=== PATIENT | male | born 1985 | race Caucasian/White ===

== ENCOUNTER → 2016-08-25 | Outpatient (CLI) | payer OTHER ==
[~2016-08-25] MED LIST: ABAC1TAB3 PO; CYCL-36 PO; LORTA5 PO
== END ==
LOC: CLAB 15:09
PROVIDERS: ATTEND Specialist
DX: B20 Human immunodeficiency virus [HIV] disease (principal); B18.2 Chronic viral hepatitis C; E55.9 Vitamin D deficiency, unspecified; Z79.899 Other long term (current) drug therapy; Z20.2 Contact with and (suspected) exposure to infections with a predominantly sexual mode of transmission
CPT/HCPCS: 36415; 82140

== ENCOUNTER 2017-05-05 10:49 | Emergency (ER) | payer OTHER ==
[~2017-05-05] VITALS: Ht 167.6 cm; Wt 63.0 kg
[2017-05-05 10:53] VITALS: BP 119/79; PULSE 108; RESP 20; TEMP 100.5; O2SAT 98
--- NOTE | 2017-05-05 13:55 | PD ---
HPI Chief Complaint: GI Complaint Time Seen by Provider: 13:54 Travel History International Travel<30 days: No Contact w/Intl Traveler<30days: No Traveled to known affect area: No History of Present Illness HPI 32-year-old male came to the emergency room with history of fever, body aches, cough and not feeling well for past 2-3 days. Patient is HIV positive but taking his antiretroviral medications. He says that he missed his last appointment with his doctor. But as of 5 months ago his viral load was undetectable. Patient had a temperature of 100.5. He says that he took some Motrin at 9 AM today. Rest of the vital signs are relatively stable. No known sick contacts. He did not get his flu shot this winter season. He has been having vomiting and diarrhea as well. Patient says that 3-4 years ago when he had these symptoms was diagnosed with a bad pneumonia and needed a chest tube. He just wanted to make sure he didn't have the same condition this time again. [facility] Past Medical History Narrative Medical List of his past medical, surgical, social and family history is reviewed from the nursing note. ADHD: Yes Anemia: Yes Blood Disorders: Yes (HIV POSITIVE- RECENTLY DIAGNOSED) Anxiety: Yes Depression: Yes (BIPOLAR) Diminished Hearing: No Respiratory: Yes (TUBERCULOSIS: 2011, CHEST TUBE INSERTED) Pneumonia: Yes Ulcer: Yes (?) Past Surgical History Appendectomy: Yes Social History Alcohol Use: Yes (OCC) Tobacco Use: No Substance Use: Yes (USES COCAINE AND MOLLYS) Allergies-Medications (Allergen,Severity, Reaction): Coded Allergies: No Known Allergies (Unverified Allergy, Unknown, 05/05/17) Comments No known drug allergies. Reported Meds & Prescriptions Reported Meds & Active Scripts Active Tamiflu (Oseltamivir Phosphate) 75 Mg Cap 75 Mg PO BID 5 Days Zofran Odt (Ondansetron Odt) 4 Mg Tab 4 Mg SL Q6HR PRN Reported Triumeq (Pfkhhbsx-Seafkchhjlpz-Jxofqzxrbd) 600-50-300 Mg Tab 1 Tab PO DAILY Hazardous agent; use appropriate precautions for handling & disposal. Narrative Medication List of his home medications reviewed from the nursing note. Review of Systems Except as stated in HPI: all other systems reviewed are Neg General / Constitutional: Positive: Fever, Chills Respiratory: Positive: Cough Gastrointestinal: Positive: Nausea, Vomiting, Diarrhea Musculoskeletal: Positive: Myalgias Physical Exam Narrative GENERAL: Awake, alert, moderate distress SKIN: Focused skin assessment warm/dry. HEAD: Atraumatic. Normocephalic. EYES: Pupils equal and round. No scleral icterus. No injection or drainage. ENT: No nasal bleeding or discharge. Mucous membranes pink and moist. NECK: Trachea midline. No JVD. CARDIOVASCULAR: Regular rate and rhythm. No murmur appreciated. RESPIRATORY: No accessory muscle use. Clear to auscultation. Breath sounds equal bilaterally. GASTROINTESTINAL: Abdomen soft, non-tender, nondistended. Hepatic and splenic margins not palpable. MUSCULOSKELETAL: No obvious deformities. No clubbing. No cyanosis. No edema. NEUROLOGICAL: Awake and alert. No obvious cranial nerve deficits. Motor grossly within normal limits. Normal speech. PSYCHIATRIC: Appropriate mood and affect; insight and judgment normal. Data Data Last Documented VS Vital Signs Date Time Temp Pulse Resp B/P (MAP) Pulse Ox O2 Delivery O2 Flow Rate FiO2 05/05/17 16:24 100 16 126/69 (88) 100 05/05/17 14:44 101.1 Room Air Orders Orders Sepsis Workup Initiated (05/05/17 ) Complete Blood Count With Diff (05/05/17 13:57) Comprehensive Metabolic Panel (05/05/17 13:57) Lactic Acid Sepsis Protocol (05/05/17 13:57) Urinalysis - C+S If Indicated (05/05/17 13:57) Influenzae A/B Antigen (05/05/17 13:57) Blood Culture (05/05/17 13:57) Chest, Single Ap (05/05/17 13:57) Blood Glucose (05/05/17 13:57) Ecg Monitoring (05/05/17 13:57) Iv Access Insert/Monitor (05/05/17 13:57) Oximetry (05/05/17 13:57) Oxygen Administration (05/05/17 13:57) Sodium Chlor 0.9% 1000 Ml Inj (Ns 1000 M (05/05/17 13:57) Sodium Chlor 0.9% 1000 Ml Inj (Ns 1000 M (05/05/17 13:57) Sodium Chlor 0.9% 1000 Ml Inj (Ns 1000 M (05/05/17 13:57) Oseltamivir (Tamiflu) (05/05/17 15:15) Ed Discharge Order (05/05/17 15:20) Ibuprofen (Motrin) (05/05/17 15:30) Labs Laboratory Tests Test 05/05/17 14:15 White Blood Count 5.9 TH/MM3 Red Blood Count 4.68 MIL/MM3 Hemoglobin 15.2 GM/DL Hematocrit 42.0 % Mean Corpuscular Volume 89.7 FL Mean Corpuscular Hemoglobin 32.4 PG Mean Corpuscular Hemoglobin Concent 36.1 % Red Cell Distribution Width 13.6 % Platelet Count 218 TH/MM3 Mean Platelet Volume 9.0 FL Neutrophils (%) (Auto) 57.0 % Lymphocytes (%) (Auto) 25.7 % Monocytes (%) (Auto) 16.9 % Eosinophils (%) (Auto) 0.0 % Basophils (%) (Auto) 0.4 % Neutrophils # (Auto) 3.4 TH/MM3 Lymphocytes # (Auto) 1.5 TH/MM3 Monocytes # (Auto) 1.0 TH/MM3 Eosinophils # (Auto) 0.0 TH/MM3 Basophils # (Auto) 0.0 TH/MM3 CBC Comment AUTO DIFF Differential Comment AUTO DIFF CONFIRMED Urine Color YELLOW Urine Turbidity CLEAR Urine pH 6.5 Urine Specific [place] 1.009 Urine Protein NEG mg/dL Urine Glucose (UA) NEG mg/dL Urine Ketones NEG mg/dL Urine Occult Blood NEG Urine Nitrite NEG Urine Bilirubin NEG Urine Urobilinogen LESS THAN 2.0 MG/DL Urine Leukocyte Esterase NEG Urine RBC 1 /hpf Urine WBC LESS THAN 1 /hpf Urine Squamous Epithelial Cells <1 /hpf Microscopic Urinalysis Comment CATH-CULT NOT IND Blood Urea Nitrogen 8 MG/DL Creatinine 1.03 MG/DL Random Glucose 81 MG/DL Total Protein 7.9 GM/DL Albumin 3.9 GM/DL Calcium Level 8.9 MG/DL Alkaline Phosphatase 85 U/L Aspartate Amino Transf (AST/SGOT) 127 U/L Alanine Aminotransferase (ALT/SGPT) 261 U/L Total Bilirubin 0.5 MG/DL Sodium Level 137 MEQ/L Potassium Level 3.7 MEQ/L Chloride Level 101 MEQ/L Carbon Dioxide Level 28.9 MEQ/L Anion Gap 7 MEQ/L Estimat Glomerular Filtration Rate 83 ML/MIN Lactic Acid Level 1.3 mmol/L [facility] Medical Decision Making Medical Screen Exam Complete: Yes Emergency Medical Condition: Yes Medical Record Reviewed: Yes Differential Diagnosis Pneumonia, influenza, viral illness, sepsis Narrative Course 3:17 PM given the fact patient is HIV positive I decided do a full sepsis workup on this patient. He is positive for influenza A. Chemistry lactic acid are within acceptable limits. CBC is pending. Chest x-rays negative. Patient was given IV fluid bolus as per the sepsis protocol. If the CBC is within acceptable limits I will discharge him home. Procedures EKG Prior to Arrival: No Diagnosis Primary Impression: Influenza A Additional Impressions: Fever Qualified Codes: R50.9 - Fever, unspecified HIV disease Referrals: Primary Care Physician 2 days Additional Instructions: Follow-up with your primary care next 1-2 days. Return to the ER if condition worsens or any other new concerns. Take the medication as per the prescription direction. Try to stay hydrated as much as possible. Med/Other Pt SpecificInfo: Prescription(s) given Scripts Oseltamivir (Tamiflu) 75 Mg Cap 75 MG PO BID for Mgmt Viral Infection for 5 Days, #10 CAP 0 Refills Prov: Kamini Jackson MD 05/05/17 Ondansetron Odt (Zofran Odt) 4 Mg Tab 4 MG SL Q6HR Y for Nausea/Vomiting, #10 TAB 0 Refills Prov: Kamini Jackson MD 05/05/17 Disposition: 01 DISCHARGE HOME Condition: Stable Kamini Jackson MD May 05, 2017 13:55
[2017-05-05] MEDS ORDERED: SODIUM CHLOR 0.9% 1000 ML INJ 100 ML IV ONE (13:57)
[2017-05-05] MEDS ORDERED: SODIUM CHLOR 0.9% 1000 ML INJ 1,000 ML IV ONE ×2 (13:57)
[2017-05-05] MEDS ORDERED: ABAC1TAB3 PO (14:36)
[2017-05-05 14:42] VITALS: BP 120/74; PULSE 94; RESP 20; TEMP 101.1; O2SAT 100
[2017-05-05 14:44] VITALS: BP 120/74; PULSE 98; RESP 20; TEMP 101.1; O2SAT 100
[2017-05-05 14:50] LABS: AUTOMATED NEUTROPHIL # 3.4 TH/MM3 (1.8-7.7); BASOPHIL % 0.4 % (0.0-2.0); HEMOGLOBIN 15.2 GM/DL (13.0-17.0); LYMPH % 25.7 % (9.0-44.0); LYMPHOCYTE # 1.5 TH/MM3 (1.0-4.8); MEAN CELL VOLUME 89.7 FL (80.0-100.0); MEAN CORPUSCULAR HEMOGLOBIN 32.4 PG (27.0-34.0); MONO % 16.9 % (0.0-8.0); PLATELET COUNT 218 TH/MM3 (150-450); RED BLOOD COUNT 4.68 MIL/MM3 (4.50-5.90); RED CELL DISTRIBUTION WIDTH 13.6 % (11.6-17.2); WHITE BLOOD COUNT 5.9 TH/MM3 (4.0-11.0)
--- NOTE | 2017-05-05 14:55 | RADRPT ---
EXAM DATE/TIME: 05/05/2017 14:35 [place] COMPARISON: CHEST SINGLE AP, October 07, 2014, 11:16. INDICATIONS : Fever and cough for 4 days. MEDICAL HISTORY : Hepatitis C. Tuberculosis. History of pneumonia. Anemia. HIV. SURGICAL HISTORY : Appendectomy. Chest tube insertation. ENCOUNTER: Initial ACUITY: 4 - 6 days PAIN SCORE: 0/10 LOCATION: Bilateral chest FINDINGS: A single view of the chest demonstrates the lungs to be symmetrically aerated without evidence of mas s, infiltrate or effusion. The cardiomediastinal contours are unremarkable. Osseous structures are intact. CONCLUSION: No acute disease. Yamil Manzo MD on May 05, 2017 at 14:52 Board Certified Radiologist. This report was verified electronically.
[2017-05-05 15:03] LABS: ALBUMIN 3.9 GM/DL (3.4-5.0); ALT (GPT) 261 U/L (12-78); AST (GOT) 127 U/L (15-37); BICARBONATE 28.9 MEQ/L (21.0-32.0); BLOOD UREA NITROGEN 8 MG/DL (7-18); CALCIUM 8.9 MG/DL (8.5-10.1); CHLORIDE 101 MEQ/L (98-107); CREATININE 1.03 MG/DL (0.60-1.30); GLOMERULAR FILTRATION RATE 83 ML/MIN (>89); GLUCOSE,RANDOM 81 MG/DL (74-106); SODIUM (NA) 137 MEQ/L (136-145)
[2017-05-05 15:05] LABS: ALKALINE PHOSPHATASE 85 U/L (45-117); TOTAL BILIRUBIN ADULT 0.5 MG/DL (0.2-1.0); TOTAL PROTEIN 7.9 GM/DL (6.4-8.2)
[2017-05-05 15:06] LABS: BILIRUBIN, URINE NEG (NEG); BLOOD, URINE NEG (NEG); GLUCOSE,URINE NEG (NEG); KETONE, URINE NEG (NEG); NITRITE,URINE NEG (NEG); PH, URINE 6.5 (5.0-8.5); SQUAMOUS EPITHELIAL CELL URINE <1 /hpf (0-5); URINE COLOR YELLOW (YELLW/STRAW); URINE LEUKOCYTE ESTERASE NEG (NEG)
[2017-05-05 15:14] LABS: MEAN CORPUSCULAR HGB CONC 36.1 % (32.0-36.0)
[2017-05-05] MEDS ORDERED: OSELTAMIVIR PHOSPHATE 75 MG CAP PO ONE (15:15)
[2017-05-05] MEDS ORDERED: OSEL75 PO (15:21)
[2017-05-05] MEDS ORDERED: ZOFR4TAB3 SL (15:21)
[2017-05-05] MEDS ORDERED: IBUPROFEN 600 MG TAB PO ONE (15:30)
[2017-05-05 16:24] VITALS: BP 126/69
== END 2017-05-05 16:56 | disposition home or self-care (01) ==
LOC: NEPD 10:49
DX: J10.89 Influenza due to other identified influenza virus with other manifestations (principal); F14.90 Cocaine use, unspecified, uncomplicated; F15.90 Other stimulant use, unspecified, uncomplicated; Z21 Asymptomatic human immunodeficiency virus [HIV] infection status
CPT/HCPCS: 71045; 80053; 81001; 83605; 85025; 87040; 87804; 96360; 96361; 99284; J7030